=== PATIENT | male | born 1985 | race Hispanic/Latino ===

== ENCOUNTER 2019-04-30 08:02 | Emergency (ER) | payer BC, MEDICAID ==
[2019-04-30] MEDS ORDERED: Morphine 4 MG/ML VIAL ONE (08:37)
[2019-04-30] MEDS ORDERED: Ondansetron PF 4 MG/2 ML Vial ONE (08:37)
--- NOTE | 2019-04-30 08:54 | RAD ---
CHEST TWO VIEWS: HISTORY: Chest wall pain and difficulty taking a deep breath secondary to pain. COMPARISON: None. FINDINGS: Two views of the chest show normal sized cardiomediastinal silhouette. There is no evidence of consol idation, mass, or pleural effusion. The bones are unremarkable. IMPRESSION: No evidence of acute cardiopulmonary disease. POS: [facility]
[2019-04-30 09:05] LABS: #Eosinphils 0.1 thou/uL (0.0-0.7); #Lymphocytes 1.7 thou/uL (1.20-3.40); #Monocytes 0.5 thou/uL (0.11-0.59); #Neutrophils 5.7 thou/uL (1.40-6.50); %Basophils 0.5 % (0.0-1.0); %Eosinophils 1.2 % (0.0-10.0); %Lymphocytes 21.2 % (21.0-51.0); %Monocytes 6.2 % (0.0-10.0); %Neutrophils 70.9 % (42.0-75.0); Hemoglobin 14.9 g/dL (14.0-18.0); Mean Corpuscular HGB CONC 34.2 g/dL (32.0-36.0); Mean Corpuscular Hemoglobin 30.4 pg (27.0-31.0); Mean Corpuscular Volume 88.9 fL (78.0-98.0); Mean Platelet Volume 10.2 fL (7.4-10.4); Platelet Count 122 thou/uL (130-400); RBC Distribution Width 12.4 % (11.5-14.5); Red Blood Cell (RBC) Count 4.89 mill/uL (4.70-6.10)
[2019-04-30 09:32] LABS: ALT (SGPT) 13 U/L (8-55); AST (SGOT) 13 U/L (5-34); Albumin 4.8 g/dL (3.5-5.0); Alkaline Phosphatase 45 U/L (40-150); Anion Gap 13 mmol/L (10-20); BUN (Urea Nitrogen) 10 mg/dL (8.9-20.6); Bilirubin, Total 0.7 mg/dL (0.2-1.2); Calc. Creatinine Clearance 0 mL/min (70-130); Calcium 10.6 mg/dL (7.8-10.44); Carbon Dioxide 28 mmol/L (22-29); Chloride 104 mmol/L (98-107); Estimated GFR-MDRD Greater than 90; Globulin 3.1 g/dL (2.4-3.5); Glucose 107 mg/dL (70-105); Potassium 3.7 mmol/L (3.5-5.1); Protein, Total 7.9 g/dL (6.0-8.3); Sodium 141 mmol/L (136-145)
[2019-04-30] MEDS ORDERED: Aspirin Chewable 81 MG TAB ONE (09:33)
[2019-04-30] MEDS ORDERED: Ketorolac Tromethamine 30 MG/ML VIAL ONE (09:56)
[2019-04-30] MEDS ORDERED: Mag-Al 1200 mg/1200 mg/30 ML UDCUP ONE (11:06)
[2019-04-30] MEDS ORDERED: Lidocaine Viscous Sol 2% 15 ml UD Cup ONE (11:06)
[2019-04-30 11:59] LABS: Troponin I Less than 0.010 ng/mL (< 0.028)
== END 2019-04-30 12:28 | disposition home or self-care (01) ==
LOC: ERS 08:02
DX: R07.89 Other chest pain (principal)
CPT/HCPCS: 36415; 71046; 80053; 83690; 84484; 85025; 85379; 93005; 96361; 96374; 96375; J1885; J2270; J2405